=== PATIENT | male | born 2000 | race African-American/Black ===

== ENCOUNTER 2020-05-31 11:36 | Emergency (ER) | payer OTHER ==
[~2020-05-31] VITALS: Ht 177.8 cm; Wt 71.0 kg
[2020-05-31] MEDS ORDERED: OMEP1CAP73 PO (11:49)
[2020-05-31] MEDS ORDERED: KETOROLAC 30 MG/ML 1ML VIAL IV ONE (12:05)
[2020-05-31] MEDS ORDERED: dexameTHASONE 20MG/5ML VIAL (J1100 PER 1MG) IV ONE (12:15)
[2020-05-31] MEDS ORDERED: AMPICILLIN SOD/SULBACTAM SOD 3 GM in D5W MINI-BAG PLUS 100 ML IV ONE (12:45)
[2020-05-31 13:00] LABS: HEMATOCRIT 43.8 % (42.0-52.0); HEMOGLOBIN 14.5 g/dl (13.5-17.5); MEAN CORPUSCULAR HEMOGLOBIN 29.4 pg (27.0-33.0); MEAN CORPUSCULAR HGB CONC 33.1 g/dl (32.0-36.5); MEAN CORPUSCULAR VOLUME 88.7 fl (80.0-96.0); PLATELET COUNT, AUTOMATED 206 10^3/uL (150-450); RED BLOOD COUNT 4.94 10^6/uL (4.30-6.10); WHITE BLOOD COUNT 10.3 10^3/uL (4.0-10.0)
[2020-05-31 13:32] LABS: RSV AMPLIFICATION NEGATIVE (NEGATIVE)
[2020-05-31 13:33] LABS: ATYPICAL LYMPH 8 % (0-5); BASOPHILS 1 % (0-1); BLOOD UREA NITROGEN 8 MG/DL (7-18); CALCIUM LEVEL 9.1 MG/DL (8.5-10.1); CARBON DIOXIDE LEVEL 26 MEQ/L (21-32); CHLORIDE LEVEL 103 MEQ/L (98-107); CREATININE FOR GFR 1.13 MG/DL (0.70-1.30); GLUCOSE, FASTING 89 MG/DL (70-100); LYMPHOCYTES 44 % (16-44); MONOCYTES 9 % (0-5); NEUTROPHILS 29 % (28-66); PLATELET ESTIMATE NORMAL (NORMAL); SODIUM LEVEL 134 MEQ/L (136-145)
[2020-05-31 13:34] LABS: ANISOCYTOSIS 1+; MONO SCRN POSITIVE (NEGATIVE)
[2020-05-31] MEDS ORDERED: ISOVUE-370 76% 100ML VIAL As Ordered ONE (13:40)
--- NOTE | 2020-05-31 14:02 | REP ---
INDICATION: possible peritonsillar abscess. COMPARISON: None. TECHNIQUE: Axial contrast-enhanced images were obtained from the thoracic inlet to the skull base with coronal and sagittal reformations using 100 cc Isovue 370 intravenous contrast material. Maximal intensity projection and multiplanar re-formation images along with 3-D rendered imaging of the arterial vasculature. This CT examination was performed using the following dose reduction techniques: Automated exposure control, adjustment of mA and/or kv according to the patient's size, and the use of iterative reconstruction technique. FINDINGS: Adenoid and symmetric bilateral tonsillar enlargement and reactive lymph nodes consistent with an oropharyngeal infectious/inflammatory process. No evidence for abscess or phlegmon. Airway remains patent. Sinuses are well aerated and clear. Mastoid air cells are clear. The osseous structures are intact. Vasculature appears normal. IMPRESSION: Adenoid and bilateral tonsillar enlargement along with adenopathy consistent with underlying infectious/inflammatory process. No abscess. <Electronically signed by Aguilar Krishnamurthy > 05/31/20 [id number]
[2020-05-31] MEDS ORDERED: PRED20TA PO (14:27)
[2020-05-31 14:41] VITALS: BP 113/62
== END 2020-05-31 15:17 | disposition home or self-care (01) ==
LOC: M ED 11:36
DX: B27.90 Infectious mononucleosis, unspecified without complication (principal); J02.0 Streptococcal pharyngitis; R13.10 Dysphagia, unspecified; R51.9 Headache, unspecified
CPT/HCPCS: 70491; 80047; 80048; 83605; 85025; 86308; 87040; 87077; 87186; 87631; 87880; 96365; 96375; 99283; J1100; J1885; Q9967

== ENCOUNTER 2020-06-05 06:53 | Observation (INO) | payer OTHER ==
[~2020-06-05] VITALS: Ht 180.3 cm; Wt 70.9 kg
[~2020-06-05 06:53] MED LIST: OMEP1CAP73 PO; PRED20TA PO
[2020-06-05] MEDS ORDERED: KETOROLAC 30 MG/ML 1ML VIAL IV ONE ×2 (07:15→09:40)
[2020-06-05] MEDS ORDERED: NS 1,000 ML IV ONE (07:15)
[2020-06-05] MEDS ORDERED: dexameTHASONE 20MG/5ML VIAL (J1100 PER 1MG) IV ONE (07:15)
[2020-06-05 07:35] LABS: HEMATOCRIT 42.9 % (42.0-52.0); HEMOGLOBIN 14.4 g/dl (13.5-17.5); MEAN CORPUSCULAR HEMOGLOBIN 29.4 pg (27.0-33.0); MEAN CORPUSCULAR HGB CONC 33.6 g/dl (32.0-36.5); MEAN CORPUSCULAR VOLUME 87.6 fl (80.0-96.0); PLATELET COUNT, AUTOMATED 260 10^3/uL (150-450); WHITE BLOOD COUNT 8.9 10^3/uL (4.0-10.0)
[2020-06-05 08:01] LABS: BLOOD UREA NITROGEN 12 MG/DL (7-18); CALCIUM LEVEL 9.3 MG/DL (8.5-10.1); CARBON DIOXIDE LEVEL 28 MEQ/L (21-32); CHLORIDE LEVEL 102 MEQ/L (98-107); CREATININE FOR GFR 0.95 MG/DL (0.70-1.30); GLUCOSE, FASTING 103 MG/DL (70-100); POTASSIUM SERUM 5.1 MEQ/L (3.5-5.1); SODIUM LEVEL 134 MEQ/L (136-145)
[2020-06-05 08:11] LABS: ATYPICAL LYMPH 10 % (0-5); BASOPHILS 1 % (0-1); LYMPHOCYTES 30 % (16-44); MONOCYTES 10 % (0-5); NEUTROPHILS 49 % (28-66); PLATELET ESTIMATE NORMAL (NORMAL)
[2020-06-05] MEDS ORDERED: CLINDAMYCIN 600 MG in IV 1 EA IV ONE (08:45)
[2020-06-05] MEDS ORDERED: ACETAMINOPHEN TAB 650MG DOSE (2X325MG) PO PRN (09:40)
[2020-06-05] MEDS ORDERED: MAALOX 30 ML SUSP *UDC PO PRN (09:40)
[2020-06-05] MEDS ORDERED: MOM 30ML SUSPENSION UDC PO PRN (09:40)
[2020-06-05] MEDS ORDERED: IBUPROFEN 400MG TAB PO PRN (09:40)
--- NOTE | 2020-06-05 09:53 | HPEPDOC ---
[facility] Medical History & Physical Date of Admission Jun 05, 2020 Date of Service: Jun 05, 2020 History and Physical CHIEF COMPLAINT: sore throat HISTORY OF PRESENT ILLNESS: 19 yo M with a hx of esophageal stricture (remote, s/p dilatation), presented to [facility] ER with worsening throat, and inability to tolerate meaningful amounts of solids and liquids. He was last seen 5 days ago for same complaint, tested positive on Monospot test on 05/31/20. He was given a dose of IV solumedrol and DC with a prednisone taper. Unfortunately he was only able to have one dose of prednisone as outpatient. He now returns with worsening odynophagia and dyspahagia. He has a low grade temp 100.0, HR 97. BP 130/64. Pulse ox 97%. No WBC. Hgb 14.4. Na 134. K 5.1. Cr 0.96. BUN 12. Throat culture was ordered. Patient otherwise denies chest pain, fevers, chills, shortness of breath, palpitations, nausea, vomiting or diarrhea. ENT Dr. Velasco was called from ER, recommending IV dexamethasone 4 mg q6h x 8 doses, and to start IV clindamycin. Patient will be admitted under hospitalist service. PAST MEDICAL HISTORY: Esophageal stricture. PAST SURGICAL HISTORY: esophageal dilatation SOCIAL HISTORY: Patient denies smoking Patient denies etoh use Patient denies illicit drug use FAMILY HISTORY: Reviewed with patient. He does not report any relevant family history. ALLERGIES: Please see below. REVIEW OF SYSTEMS: 10 point review of systems completed. Relevant findings noted in the HPI. HOME MEDICATIONS: Please see below. PHYSICAL EXAMINATION: VITAL SIGNS: please see below General: NAD, comfortable HEENT: PERRLA, EOMI, sclerae clear. Enlarged tonsils, left and right touching each other, anterior uveal delayed deviation. Tonsillar exudates bilaterally. Neck: supple, normal ROM, no JVD Respiratory: lungs CTAB, no wheeze, no rales, no crackles CVS: RRR, normal S1, S2, no murmurs Abdo: soft, no masses, no hepatosplenomegaly, BS+, no rebound tenderness Extremities: no edema, pulses 2+ MSK: no joint deformities, normal ROM Neuro: no focal neuro deficits, moving all 4 extremities, CN2-12 intact. Strength 5/5 in all 4 extremities. No nystagmus. Psych: calm, cooperative, AAO x 3 LABORATORY DATA: See below. MICROBIOLOGY: Please see below. ASSESSMENT: 19-year-old male with a past medical history of esophageal stricture status post dilatation, doesn't positive for mononucleosis on 05/31/20. Return for worsening dysphagia and odynophagia. ENT Dr. Velasco was called from the ER, started on IV dexamethasone every 6 hours as well as IV clindamycin. . PLAN: Infectious mononucleosis: - Diagnosed with mono spot test. On 05/31/20 - Odynophagia and dysphagia, reduced PO intake - COVID negative - throat culture pending - D/w Dr. Velasco, ENT. No need for CT neck imaging - start dexamethasone 4 mg IV q6h x 8 doses - start IV clindamycin - Pain control with Toradol, Tylenol. - expected recovery in 1-2 days - plan for medrol dose pack on DC, as well as a course of PO clindamycin - clear liquid diet. DVT ppx: early ambulation Vital Signs Vital Signs Date Time Temp Pulse Resp B/P (MAP) Pulse Ox O2 Delivery O2 Flow Rate FiO2 06/05/20 07:44 06/05/20 06:54 100.0 114 16 97 Room Air Laboratory Data Labs 24H Laboratory Tests 2 06/05/20 07:25: Neutrophils (%) (Auto) , Nucleated Red Blood Cells % (auto) 0.0, Neutrophils 49, Lymphocytes (Manual) 30, Monocytes (Manual) 10H, Basophils (Manual) 1, Atypical Lymphocytes 10H, Red Blood Cell Morphology NORMAL, Platelet Estimate NORMAL, Anion Gap 4L, Calcium Level 9.3 06/05/20 08:51: Coronavirus (COVID-19)(PCR) NEGATIVE CBC/BMP Laboratory Tests 06/05/20 07:25 Microbiology Microbiology 06/05/20 Eye/Ear/Nose/Throat Culture, Received Pending Home Medications No Active Prescriptions or Reported Meds Allergies Coded Allergies: Grape (Verified Allergy, Unknown, throat swelling, 05/31/20) A-FIB/CHADSVASC A-FIB History Current/History of A-Fib/PAF?: No Current PO Anticoag Therapy: No WARNER BELL MD Jun 05, 2020 09:53
[2020-06-05 11:00] VITALS: BP 124/83
[2020-06-05] MEDS: DOCUSATE SODIUM 100MG CAPSULE PO SCH ×2 (11:34→20:13)
[2020-06-05 14:00] VITALS: BP 107/62
[2020-06-05] MEDS: CLINDAMYCIN 600 MG in IV 1 EA IV SCH ×2 (15:57→20:13)
[2020-06-05] MEDS: dexameTHASONE 4 MG/ML 1ML VIAL (J1100 PER 1MG) IV SCH ×2 (15:57→23:49)
[2020-06-05] MEDS ORDERED: ACETAMINOPHEN 325 MG/10.15 ML UDC PO PRN (17:05)
[2020-06-05] MEDS ORDERED: IBUPROFEN 100 MG/5 ML SUSP UDC DYE FREE PO PRN (17:05)
[2020-06-05] MEDS: KETOROLAC 30 MG/ML 1ML VIAL IV PRN (21:50)
[2020-06-05 22:00] VITALS: BP 106/58
[2020-06-06] MEDS: CLINDAMYCIN 600 MG in IV 1 EA IV SCH ×4 (02:23→20:05)
[2020-06-06 06:00] VITALS: BP 102/74
[2020-06-06] MEDS: dexameTHASONE 4 MG/ML 1ML VIAL (J1100 PER 1MG) IV SCH ×3 (08:04→23:26)
[2020-06-06] MEDS: DOCUSATE SODIUM 100MG CAPSULE PO SCH ×2 (08:04→20:05)
[2020-06-06] MEDS ORDERED: NS 1,000 ML IV SCH (09:00)
[2020-06-06 10:28] LABS: HEMATOCRIT 39.5 % (42.0-52.0); HEMOGLOBIN 13.5 g/dl (13.5-17.5); MEAN CORPUSCULAR HEMOGLOBIN 29.8 pg (27.0-33.0); MEAN CORPUSCULAR HGB CONC 34.2 g/dl (32.0-36.5); MEAN CORPUSCULAR VOLUME 87.2 fl (80.0-96.0); PLATELET COUNT, AUTOMATED 316 10^3/uL (150-450); RED BLOOD COUNT 4.53 10^6/uL (4.30-6.10)
--- NOTE | 2020-06-06 10:46 | IPNPDOC ---
Date Seen The patient was seen on 06/06/20. Progress Note SUBJECTIVE: Patient was seen and examined at bedside. No acute events overnight. States that his throat soreness is improved. He is able to sip on water and melissa mercy. He is hopeful to try more advanced diet to full liquid today. He denies any fevers or chills, chest pain, shortness of breath, nausea, vomiting or diarrhea. I warned him about the risks of contact sports. Regarding his possible hypersplenism and risk of splenic rupture in context of infectious mononucleosis. Patient understood and verbalized. OBJECTIVE PHYSICAL EXAMINATION: VITAL SIGNS: please see below General: NAD, comfortable HEENT: PERRLA, EOMI, sclerae clear. Tonsillar erythema improved Neck: supple, normal ROM, no JVD Respiratory: lungs CTAB, no wheeze, no rales, no crackles CVS: RRR, normal S1, S2, no murmurs Abdo: soft, no masses, no hepatosplenomegaly, BS+, no rebound tenderness Extremities: no edema, pulses 2+ MSK: no joint deformities, normal ROM Neuro: no focal neuro deficits, moving all 4 extremities, CN2-12 intact. Strength 5/5 in all 4 extremities. No nystagmus. Psych: calm, cooperative, AAO x 3 LABORATORY DATA, IMAGING STUDIES, MICROBIOLOGY: Please see below. DVT prophylaxis ordered?: SCDs and early ambulation ASSESSMENT AND PLAN: 19-year-old male with a past medical history of esophageal stricture status post dilatation, test positive for mononucleosis on 05/31/20. Return for worsening dysphagia and odynophagia. ENT Dr. Velasco was called from the ER, started on IV dexamethasone every 6 hours as well as IV clindamycin. . PLAN: Infectious mononucleosis: - Diagnosed with mono spot test. On 05/31/20 - Odynophagia and dysphagia, reduced PO intake - COVID negative - throat culture negative - D/w Dr. Velasco, ENT. No need for CT neck imaging - start dexamethasone 4 mg IV q6h x 8 doses -Tinea IV clindamycin - Pain control with Toradol, Tylenol. - expected recovery in 1-2 days - plan for medrol dose pack on DC, as well as a course of PO clindamycin -Advance diet to full liquid. DVT ppx: early ambulation VS, I&O, 24H, Fishbone Vital Signs/I&O Vital Signs Date Time Temp Pulse Resp B/P (MAP) Pulse Ox O2 Delivery O2 Flow Rate FiO2 06/06/20 06:00 97.6 94 21 102/74 (83) 99 Room Air I&O- Last 24 Hours up to 6 AM 06/06/20 06:00 Intake Total 2020 ml Output Total 0 ml Balance 2020 ml Laboratory Data 24H LABS Laboratory Tests 2 06/06/20 08:53: Neutrophils (%) (Auto) , Nucleated Red Blood Cells % (auto) 0.0 CBC/BMP Laboratory Tests 06/06/20 08:53 Microbiology Microbiology 06/05/20 Eye/Ear/Nose/Throat Culture - Final, Complete WARNER BELL MD Jun 06, 2020 10:46
[2020-06-06 10:47] LABS: ANISOCYTOSIS 1+; ATYPICAL LYMPH 11 % (0-5); LYMPHOCYTES 18 % (16-44); MONOCYTES 5 % (0-5); NEUTROPHILS 64 % (28-66); PLATELET ESTIMATE NORMAL (NORMAL)
[2020-06-06 10:59] LABS: ALBUMIN 3.3 GM/DL (3.2-5.2); ALT/SGPT 117 U/L (12-78); BILIRUBIN,TOTAL 0.5 MG/DL (0.2-1.0); BLOOD UREA NITROGEN 13 MG/DL (7-18); CARBON DIOXIDE LEVEL 29 MEQ/L (21-32); CHLORIDE LEVEL 105 MEQ/L (98-107); CREATININE FOR GFR 0.84 MG/DL (0.70-1.30); GLUCOSE, FASTING 152 MG/DL (70-100); MAGNESIUM LEVEL 2.6 MG/DL (1.8-2.4); POTASSIUM SERUM 4.5 MEQ/L (3.5-5.1); SODIUM LEVEL 137 MEQ/L (136-145)
[2020-06-06 14:00] VITALS: BP 102/70
[2020-06-06] MEDS: KETOROLAC 30 MG/ML 1ML VIAL IV PRN (20:06)
[2020-06-06 22:00] VITALS: BP 105/67
[2020-06-07] MEDS: CLINDAMYCIN 600 MG in IV 1 EA IV SCH ×2 (02:01→08:07)
[2020-06-07 06:00] VITALS: BP 110/62
[2020-06-07] MEDS: dexameTHASONE 4 MG/ML 1ML VIAL (J1100 PER 1MG) IV SCH (08:07)
[2020-06-07] MEDS: DOCUSATE SODIUM 100MG CAPSULE PO SCH (08:07)
[2020-06-07 08:59] LABS: HEMATOCRIT 41.3 % (42.0-52.0); HEMOGLOBIN 13.7 g/dl (13.5-17.5); MEAN CORPUSCULAR HEMOGLOBIN 29.5 pg (27.0-33.0); MEAN CORPUSCULAR HGB CONC 33.2 g/dl (32.0-36.5); MEAN CORPUSCULAR VOLUME 88.8 fl (80.0-96.0); PLATELET COUNT, AUTOMATED 364 10^3/uL (150-450); RED BLOOD COUNT 4.65 10^6/uL (4.30-6.10); WHITE BLOOD COUNT 7.8 10^3/uL (4.0-10.0)
[2020-06-07 09:28] LABS: BLOOD UREA NITROGEN 10 MG/DL (7-18); CALCIUM LEVEL 9.1 MG/DL (8.5-10.1); CARBON DIOXIDE LEVEL 30 MEQ/L (21-32); CHLORIDE LEVEL 103 MEQ/L (98-107); CREATININE FOR GFR 0.72 MG/DL (0.70-1.30); GLUCOSE, FASTING 126 MG/DL (70-100); MAGNESIUM LEVEL 2.3 MG/DL (1.8-2.4); POTASSIUM SERUM 4.5 MEQ/L (3.5-5.1); SODIUM LEVEL 136 MEQ/L (136-145)
[2020-06-07 09:34] LABS: ATYPICAL LYMPH 10 % (0-5); LYMPHOCYTES 29 % (16-44); MONOCYTES 7 % (0-5); NEUTROPHILS 51 % (28-66); PLATELET ESTIMATE NORMAL (NORMAL)
[2020-06-07 09:35] LABS: ANISOCYTOSIS 1+
[2020-06-07] MEDS ORDERED: PANT40TA29 PO (10:01)
[2020-06-07] MEDS ORDERED: ACET325S6 PO ×2 (10:01→10:13)
[2020-06-07] MEDS ORDERED: MEDR4PAK PO (10:01)
[2020-06-07] MEDS ORDERED: CLIN150C15 PO (10:01)
--- NOTE | 2020-06-07 10:34 | DS.PDOC ---
Discharge Summary General Date of Admission Jun 05, 2020 at 06:54 Date of Discharge 06/07/2020 Discharge Summary PROCEDURES PERFORMED DURING STAY: None ADMITTING DIAGNOSES: Infectious mononucleosis DISCHARGE DIAGNOSES: Infectious mononucleosis COMPLICATIONS/CHIEF COMPLAINT: Inadequate Oral Intake Mononucleosis. HISTORY OF PRESENT ILLNESS: 19 yo M with a hx of esophageal stricture (remote, s/p dilatation), presented to [facility] ER with worsening throat, and inability to tolerate meaningful amounts of solids and liquids. He was last seen 5 days ago for same complaint, tested positive on Monospot test on 05/31/20. He was given a dose of IV solumedrol and DC with a prednisone taper. Unfortunately he was only able to have one dose of prednisone as outpatient. He now returns with worsening odynophagia and dyspahagia. He has a low grade temp 100.0, HR 97. BP 130/64. Pulse ox 97%. No WBC. Hgb 14.4. Na 134. K 5.1. Cr 0.96. BUN 12. Throat culture was ordered. Patient otherwise denies chest pain, fevers, chills, shortness of breath, palpitations, nausea, vomiting or diarrhea. ENT Dr. Velasco was called fr ER, recommending IV dexamethasone 4 mg q6h x 8 doses, and to start IV clindamycin. Patient will be admitted under hospitalist service. HOSPITAL COURSE: Infectious mononucleosis: - Diagnosed with mono spot test on 05/31/20. - Returned on 06/05/20 with worsening odynophagia and dysphagia, reduced PO intake - COVID negative - throat culture negative - D/w Dr. Velasco, ENT. No need for CT neck imaging. - start dexamethasone 4 mg IV q6h. Received 6 doses. - received 3 days of IV clindamycin - Pain control with Toradol, Tylenol. - much improved on DC. Able to tolerate regular diet. No fever. No WBC. - advised to avoid strenuous physical activity and contact sports for at least 1 month. Note provided for work (active ). - DC home with medrol dose pack as well as a course of PO clindamycin x 7days. - to follow up with PCP 3-5 days. DISCHARGE MEDICATIONS: Please see below. ALLERGIES: Please see below. PHYSICAL EXAMINATION ON DISCHARGE: General: NAD, comfortable HEENT: PERRLA, EOMI, sclerae clear. Tonsilar erythema and edema improved. Tonsillar exudates resolved. Neck: supple, normal ROM, no JVD Respiratory: lungs CTAB, no wheeze, no rales, no crackles CVS: RRR, normal S1, S2, no murmurs Abdo: soft, no masses, no hepatosplenomegaly, BS+, no rebound tenderness Extremities: no edema, pulses 2+ MSK: no joint deformities, normal ROM Neuro: no focal neuro deficits, moving all 4 extremities, CN2-12 intact. Strength 5/5 in all 4 extremities. No nystagmus. Psych: calm, cooperative, AAO x 3 LABORATORY DATA: Please see below. PROGNOSIS: excellent ACTIVITY: As tolerated. DIET: regular DISCHARGE PLAN: - avoid strenuous physical activity and contact sports for at least 1 month. Note provided for work (active ). - DC home with medrol dose pack as well as a course of PO clindamycin x 7days. - to follow up with PCP 3-5 days DISPOSITION: . DISCHARGE INSTRUCTIONS: . Please follow-up with your primary care doctor within 3-5 days . Please taking medications as prescribed. . If you develop bleeding, chest pain, shortness of breath, seizures, nausea, fevers, or otherwise worsening of your symptoms, please call 911 or return to the nearest emergency room DISCHARGE CONDITION: Stable TIME SPENT ON DISCHARGE: 35 minutes Vital Signs/I&Os Vital Signs Date Time Temp Pulse Resp B/P (MAP) Pulse Ox O2 Delivery O2 Flow Rate FiO2 06/07/20 06:00 97.2 100 23 110/62 (78) 98 Room Air I&O- Last 24 Hours up to 6 AM 06/07/20 06:00 Intake Total 3550 ml Output Total 3020 ml Balance 530 ml Laboratory Data Labs 24H Laboratory Tests 2 06/07/20 08:30: Neutrophils (%) (Auto) , Nucleated Red Blood Cells % (auto) 0.0, Neutrophils 51, Band Neutrophils 3, Lymphocytes (Manual) 29, Monocytes (Manual) 7H, Atypical Lymphocytes 10H, Anisocytosis 1+, Macrocytosis 1+, Platelet Estimate NORMAL, Anion Gap 3L, Calcium Level 9.1, Magnesium Level 2.3 CBC/BMP Laboratory Tests 06/07/20 08:30 Microbiology Microbiology 06/05/20 Eye/Ear/Nose/Throat Culture - Final, Complete Discharge Medications Scheduled Clindamycin Hcl (Clindamycin HCl) 150 Mg Capsule, 2 CAP PO TID Methylprednisolone (Medrol) 4 Mg Tab.ds.pk, 1 DP PO ASDIRECTED 6 on day 1 then reduce by one tablet daily until gone Pantoprazole Sodium (Pantoprazole Sodium) 40 Mg Tablet.dr, 1 TAB PO DAILY Scheduled PRN Acetaminophen (Acetaminophen) 325 Mg/10.15 Ml Solution, 650 MG PO Q4HP PRN for PAIN OR FEVER Allergies Coded Allergies: Grape (Verified Allergy, Unknown, throat swelling, 05/31/20) WARNER BELL MD Jun 07, 2020 10:34
== END 2020-06-07 12:15 | disposition home or self-care (01) ==
LOC: M ED 06:53 → M ED INP 06:54 → M MSPAV 10:51
PROVIDERS: ADMIT Family Medicine; ATTEND Family Medicine
DX: B27.90 Infectious mononucleosis, unspecified without complication (principal); R13.19 Other dysphagia; Z79.899 Other long term (current) drug therapy
CPT/HCPCS: 36415; 80048; 80053; 83735; 85025; 87070; 87880; 96365; 96366; 96375; 96376; 99284; J1100; J1885; U0002